=== PATIENT | female | born 1995 | race Caucasian/White ===

== ENCOUNTER → 2019-10-13 | Outpatient (CLI) | payer OTHER, SELFPAY ==
[2019-10-13 17:24] LABS: Absolute Lymphocyte Count 2.68 X10^3/uL (0.83-4.51); Absolute Neutrophil Count 5.2 X10^3/uL (2.0-7.7); Basophil# 0.02 X10^3/uL; Basophil% 0.2 % (0-1); Eosinophil# 0.09 X10^3/uL; Eosinophils% 1.1 % (0-5); Hematocrit 37.1 % (37-47); Hemoglobin 12.3 g/dL (12.0-15.0); Lymphocyte # 2.68 X10^3/ul (4.0); Lymphocyte % 31.5 % (19-41); Mean Corp Hgb Conc 33.2 g/dL (32-36); Mean Corpuscular Hgb 27.3 pg (27.0-32.0); Mean Corpuscular Volume 82.4 fL (81-99); Mean Platelet Vol. 8.7 fl (6.2-12.0); Monocyte# 0.51 X10^3/uL; NRBC Flagged by Analyzer 0 % (0-5); Neutrophil # 5.18 X10^3/uL (2.7-7.7); Neutrophil % 60.7 % (47-70); Platelet Count 264 K/mm3 (150-450); RBC Distribution Width CV 14.5 % (11.6-14.6); RBC Distribution Width SD 42.8 fl (35.1-43.9); White Blood Count 8.5 K/mm3 (4.4-11.0)
[2019-10-13 17:26] LABS: Color, Urine Yellow (Yellow); Glucose, Dipstick Normal (Normal); Ketone-Dipstick Negative (Negative); Leukocyte Esterase-Dipstick Negative /ul (Negative); Nitrite-Dipstick Negative (Negative); Occult Blood-Urine Negative /ul (Negative); Protein-Dipstick Negative (Negative); Specific Gravity, Urine 1.005 (1.002-1.030); Urine Bilirubin Dipstick Negative (Negative); Urine Clarity Sl. Cloudy (Clear); Urine Urobilinogen Normal (Normal)
[2019-10-13 17:43] LABS: Thyroid Stim Hormone (TSH) 4.36 uIU/mL (0.358-3.74)
[2019-10-14 08:55] LABS: HIV - WCH Non-Reactive (Nonreactive); Hepatitis B Surface Antigen Non-Reactive (Nonreactive); Hepatitis C Antibody Non-Reactive (Nonreactive); Rubella IgG 327.4 IU/mL
[2019-10-14 17:28] LABS: Free T3 2.7 pg/mL (2.18-3.98); T4 Free Direct 0.93 ng/dL (0.76-1.46)
[2019-10-16 01:56] LABS: Prenatal RPR NONREACTIVE (NONREACTIVE)
== END | disposition home or self-care (01) ==
PROVIDERS: Visit Provider Obstetrics & Gynecology
DX: Z34.82 Encounter for supervision of other normal pregnancy, second trimester (principal); R94.6 Abnormal results of thyroid function studies
CPT/HCPCS: 81002; 84439; 84443; 84481; 85025; 86703; 86762; 86803; 87340

== ENCOUNTER → 2019-10-13 | Outpatient (CLI) | payer OTHER, SELFPAY ==
[2019-10-13 20:20] LABS: Chlamydia Trachomatis by PCR Negative (Negative); Neisserai gonorrhoeae by PCR Negative (Negative); Probe Check PASS; Sample Adequacy Control PASS; Specimen Processing Control PASS
[2019-10-16 12:54] LABS: HPV Reflexed? NOT INDICATED
== END | disposition home or self-care (01) ==
PROVIDERS: Visit Provider Obstetrics & Gynecology
DX: Z12.4 Encounter for screening for malignant neoplasm of cervix (principal); Z11.3 Encounter for screening for infections with a predominantly sexual mode of transmission
CPT/HCPCS: 87491; 87591; 88175; G0145

== ENCOUNTER → 2020-03-10 10:33 | Outpatient (CLI) | payer OTHER, SELFPAY | PROVIDERS: Visit Provider Obstetrics & Gynecology | DX: Z11.59 Encounter for screening for other viral diseases (principal) | CPT/HCPCS: 87635; C9803; U0003 ==

== ENCOUNTER 2020-03-17 05:00 | Inpatient (IN) | payer SELFPAY, OTHER ==
--- NOTE | 2020-03-16 22:26 | HP.PCM_ITS ---
History and Physical Date of Admission: 03/17/20 ACOG ANTEPARTUM RECORD - HISTORY AND PHYSICAL (03/16/2020) Name: MELVIN NAOMIE History of This : This is a 25-year-old G3, P2 who presents for repeat section. care has been uneventful. OB Physician: LUNA 's Physician: ...................................................................... : 1995 Age: 25 Address: [address] [place] [address] Phone: (h) [phone] ([phone] Insurance Carrier: [facility] [id number] Emergency Contact: SHANITA Perkins MELVIN [phone] ...................................................................... 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 ALLERGIES: No Known Allergies MEDICATIONS: Calcium 500 500 mg calcium (1,250 mg) tablet One pill by mouth four times a day magnesium 200 mg tablet One pill by mouth once a day [place] 3-6-9 Complex 400 mg-400 mg-400 mg capsule Two pills by mouth twice a day 28 mg iron-800 mcg tablet One pill by mouth once a day vitamin B complex tablet 1 PO QD SOCIAL HISTORY: Smoking - Never Alcohol Use - None Diet - no particular diet Lifestyle - moderate stress lifestyle and Exercise - active work Employer - [employer] 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 Drug Use - None Sexual Activity - Spouse-Sig Other Name - Shanita Spouse-Sig Other 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 - [employer]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) Children Name(s) - Dillan(15) Simón(19 ) PRIOR DELIVERY HISTORY DEL DATE GEST LAB WT LB WT OZ TYPE ANES LABOR TX ANTEPARTUM FLOW CHART VISIT RTC FU F F SC U U DATE WK MD WKS HT PN HR M SS BP ED WT SC GL D EF ST __ ____ ___ __ __ ___ __ __ __ ___ __ __ __ ___ __ Mar JMW 3 38 + + 118/84 sl 188 tr - Feb JMW 1 37 + + 122/64 sl 189 1+ - 18 Feb JMW 1 37 + + 118/68 0 188 - - Jan JMW 3 33 + + 108/62 sl 185 tr - Feb 04 JMW 3 30 B + + 116/64 sl 178 - - Jan 02 JMW 3 27 + + 107/68 0 176 - - November 28 JMW 4 24 + + 100/62 tr 169 tr - Oct 25 JMW 4 20 + + 132/76 0 164 - - ANTEPARTUM NOTE(S): Mar 09 2020: See Note, Good FM Mar 02 2020: Moving Sunday; some low pressure; good FM Feb 24 2020: Doing Well, LARC declined, No GBS, R/ Feb 03 2020: Doing Well Jan 13 2020: Feeling Well,Good FM Dec 23 2019: CBC,OGCT,TSH,Free T4 & Free T3 Drawn today,Good FM Nov 25 2019: Glucola/Instructions Given,Good FM,Feeling Well Nov 03 2019: Sono Today,Good FM COMPREHENSIVE ANTEPARTUM NOTE(S): Mar 09 2020: [place] presents here today for PNV and to sign pre-op consents for Repeat with KLAUDIA at [facility]. Questions answered and consents signed. Good FM and Order for Covid-19 and instructions given. ADRIANE Oct 13 2019: [place] presents here today for Missed Menses appointment. 24 y.o. G 3 P 1 non-smoker with history of regular menses and LMP of 12-10-19 lasting her average of 5 days. UPT is positive today in our Office. Presents at 16 weeks 4 days with an approximate SANIYA of 0915-20 and plans to deliver at [facility]. Last C- Section in 2019 at [facility] with Dr. Quinonez( with baby Simón at 6 months after ). Medications and Allergies listed. Verbal report of normal pap screenings and unsure of last date. ADRIANE Oct 13 2019: ok REVIEW OF SYSTEMS: GENERAL - Denies fever, or chills SKIN - Denies rash, new skin lesions, or change in moles EYES - Denies blurred vision, or change in visual acuity EARS - Denies ear pain, or difficulty hearing NOSE - Denies nasal congestion, discharge, or bleeding MOUTH - Denies sore throat, or difficulty swallowing NECK - Denies pain or swelling RESPIRATORY - Denies shortness of breath, cough, wheezing CARDIOVASCULAR - Denies palpitations, chest pain, orthopnea, PND, peripheral edema, syncope or claudication GASTROINTESTINAL - Denies nausea, vomiting, diarrhea, constipation, Denies abdominal pain, melena and or bright red blood GENITOURINARY - Denies dysuria, frequency of urination, urgency, or hesitancy MUSCULOSKELETAL - Denies joint or muscle pain, or back pain NEUROLOGICAL - Denies localized numbness, weakness, or tingling PSYCHIATRIC - Denies depression, anxiety, substance abuse or suicide attempts ENDOCRINE - Denies heat or cold intolerance, weight loss or gain, increasing thirst HEMATO-IMMUNOLOGIC - Denies easy bruising, bleeding, oral ulcerations or recurrent infections GENETICS SCREENING: INFECTION HISTORY: MENSTRUAL HISTORY: *Menses Amount/Duration: 5 daysMenses Regularity: RegularFrequency: monthlyMenarche (Age Onset): 9* PAST SUMMARY: PARITY: 1. Total Pregnancies............ 3 2. Full Term Pregnancies........ 2 3. Premature.................... 0 4. Abortions - Induced.......... 0 5. Abortions - Spontaneous...... 0 6. Ectopics..................... 0 7. Multiple Births.............. 0 8. Living Children.............. 1 PHYSICAL EXAMINATION General Appearence: 25 yo female in no acute distress Vital Signs: AF, VSS Heart: RRR without rubs or gallops Lungs: CTA x 2 Breasts: deferred Abdomen: gravid Pelvis: Cervix: Not examined Presentation: cephalic Station: Not examined Fetus: Size: AGA Movement: present Heart: present Labs for : NAOMIE CHARLES since 06/27/2019 ORDER DATEIN DESCRIPTION VALUE UNITS RANGE A+ COMMENT CORONAVIRUS 19, BELKIS SENDOUT 03/10/20 NOTE Original Ordering Provider: Eryn Vasquez COVID-19,BELKIS Not Detected Not Detected This nucleic acid amplification test was developed and its performance characteristics determined by [facility]. Nucleic acid amplification tests include PCR and TMA. This test has not been FDA cleared or approved. This test has been authorized by FDA under an Emergency Use Authorization (EUA). This test is only authorized for the duration of time the declaration that circumstances exist justifying the authorization of the emergency use of in vitro diagnostic tests for detection of SARS-CoV-2 virus and/or diagnosis of COVID-19 infection under section 564(b)(1) of the Act, 21 U.S.C. 360bbb-3(b) (1), unless the authorization is terminated or revoked sooner. When diagnostic testing is negative, the possibility of a false negative result should be considered in the context of a patient's recent exposures and the presence of clinical signs and symptoms consistent with COVID-19. An individual without symptoms of COVID-19 and who is not shedding SARS-CoV-2 virus would expect to have a negative (not detected) result in this assay. Reviewed by ERYN T3 ( TRIIODOTHYRONINE) [CCL] 12/23/19 NOTE Original Ordering Provider: ERYN VASQUEZ T3 246 ng/dL [address] [place] [address] Tex Bellamy III, M.D. [id number] Reviewed by ERYN TSH 12/23/19 NOTE Original Ordering Provider: ERYN VASQUEZ w TSH 3.80 uIU/ml 0.34 - 5.60 Reviewed by ERYN T4 (THYROXINE) TOTAL 12/23/19w NOTE Original Ordering Provider: ERYN VASQUEZ T4 (THYROXINE) TOTAL THYROXINE(T4) T4 11.0 ug/dl 6.0 - 12.2 Reviewed by ERYN GLUCOSE CHALLENGE 50GM 1 HOUR 12/23/19 NOTE Original Ordering Provider: ERYN VASQUEZ GLUCOSE CHALLENGE 50GM 1 HOUR GLUCOSE CHALLENGE 50 GMS 1 HOUR GLUCOSE 1HR 113 mg/dl 70 - 140 Reviewed by ERYN CBC + DIFF 12/23/19 NOTE Original Ordering Provider: ERYN VASQUEZ CBC + DIFF CBC-COMPLETE BLOOD COUNT WBC 9.3 x 10EE3/UL 4.5 - 10.8 RBC 3.83 x 10EE6/UL 4.10 - 5.30 L HEMOGLOBIN 11.1 g/dl 12.0 - 16.0 L HEMATOCRIT 32.1 % 34.0 - 46.0 L MCV 84 fl 80 - 99 MCH 29 pg 27 - 33 MCHC 35 X10 3 32 - 36 RDW/CV 14.2 % 12.0 - 15.6 PLATELET 313 x10EE3/UL 150 - 450 MPV 6.6 fl 6.6 - 10.5 AUTOMATED DIFFERENTIAL NEUT % 70.2 % 46.0 - 76.0 LYMPH % 23.7 % 20.0 - 45.0 MONOS % 4.7 % 0.0 - 10.0 EO % 1.0 % 0.0 - 7.0 BASO % 0.4 % 0.0 - 2.0 LYMPH # 2.20 x10EE3/UL 0.80 - 2.80 NEUT # 6.50 x10EE3/UL 1.50 - 7.10 MONO # 0.40 x10EE3/UL 0.20 - 1.00 EO # 0.10 x10EE3/UL 0.00 - 0.50 BASO # 0.00 x10EE3/UL 0.00 - 0.10 MANUAL DIFF N/A MORPHOLOGY N/A Reviewed by ERYN T3, FREE [CCL] 12/23/19 NOTE Original Ordering Provider: ERYN VASQUEZ T3, FREE [CCL] _T3, FREE(CCL)_ REFER TO SCANNED REPORT Reviewed by ERYN T4-FREE (FREE THYROXINE) 12/23/19 NOTE Original Ordering Provider: ERYN VASQUEZ T4-FREE (FREE THYROXINE) REFER TO SCANNED REPORT Potential of falsely elevated results when biotin concentrations are > 10 ng/mL. Reviewed by ERYN Panel-Thyroid 12/22/19 T-3 Uptake scanned Reviewed by ERYN STRATTON IG W/REFLEX HR HPV APTIMA 10/13/19 NOTE Original Ordering Provider: Eryn Vasquez DIAGN . NEGATIVE FOR INTRAEPITHELIAL LESION OR MALIGNANCY. THIS SPECIMEN WAS RESCREENED PART OF OUR VIDEOGAME TESTER PROGRAM. ADEQ . Satisfactory for evaluation. Endocervical and/or squamous metaplastic cells (endocervical component) are present. Areas of partially obscuring inflammatory exudate are present. PERFORM . [place], Cmo & President (ASCP) QC REV . Radha Edwards, Supervisory Cmo & President (ASCP) TEST METHOD . This liquid based ThinPrep(R) pap test was screened with the use of an image guided system. COMM . . PAPSMR . The Pap smear is a screening test designed to aid in the detection of premalignant and malignant conditions of the uterine cervix. It is not a diagnostic procedure and should not be used as the sole means of detecting cervical cancer. Both false-positive and false-negative reports do occur. HPV RFLX . The HPV DNA reflex criteria were not met with this specimen result therefore, no HPV testing was performed. Performed at: [address] [id number] Economics Lecturer: Lizzeth Lilly MD, Phone: [phone] Reviewed by ERYN JIMENEZ/RICK [facility] BY PCR 10/13/19 NOTE Original Ordering Provider: Eryn [facility] PCR Negative Negative NG BY PCR Negative Negative Reviewed by AMOS RPR 10/13/19 NOTE Original Ordering Provider: Eryn Vasquez RPR NONREACTIVE NONREACTIVE Reviewed by ERYN T4 FREE DIRECT 10/13/19 NOTE Original Ordering Provider: Eryn Vasquez T4 FREE DIRECT 0.93 ng/dL 0.76-1.46 Reviewed by AMOS THYROID STIM HORMONE (TSH) 10/13/19 NOTE Original Ordering Provider: Eryn Vasquez TSH 4.36 uIU/mL 0.358-3.74 H Reviewed by AMOS FREE T3 10/13/19 NOTE Original Ordering Provider: Eryn Vasquez FREE T3 2.7 pg/mL 2.18-3.98 Reviewed by AMOS HEPATITIS C ANTIBODY 10/13/19 NOTE Original Ordering Provider: Eryn Vasquez HEPATITIS C AB Non-Reactive Nonreactive Non Reactive: < 0.8 Equivocal: >/= 0.8 to < 1.0 Reactive: >/= 1.0 The CDC recommends that a reactive/equivocal HCV antibody result be followed up by the HCV Nucleic Acid Amplification test (327591) w Reviewed by AMOS HEPATITIS B SURFACE ANTIGEN 10/13/19 NOTE Original Ordering Provider: Eryn Vasquez HEPB SURFACE AG Non-Reactive Nonreactive Reviewed by AMOS HIV - H 10/13/19 NOTE Original Ordering Provider: Eryn Vasquez HIV - [facility] Non-Reactive Nonreactive Reviewed by AMOS RUBELLA IGG 10/13/19 NOTE Original Ordering Provider: Eryn Vasquez RUBELLA IGG 327.4 IU/mL Antibody results Interpretation of Immune Status < 5 IU/ml Presumed Non-immune 5 - < 10 IU/ml Equivocal > or = 10 IU/ml Presumed Immune Reviewed by AMOS T AND S-NO CHARGE W/PNP 10/13/19 Reason for Type AND Screen/Red Cells: Surgery? [facility]~[address] [place], [address]~ BLOOD TYPE GEL O POSITIVE N AB SCREEN GEL NEGATIVE N c Reviewed by AMOS Reviewed by AMOS URINALYSIS, ROUTINE (DIPSTICK) 10/13/19 NOTE Original Ordering Provider: Eryn Vasquez COLOR Yellow Yellow CLARITY Sl. Cloudy Clear GLUCOSE, UR Normal mg/dl Normal BILIRUBIN URINE Negative mg/dL Negative KETONE UR Negative mg/dl Negative SP.GR. DIPSTX 1.005 1.002-1.030 PH UR 7.0 5.0 - 8.0 PROT DIPSTX Negative mg/dl Negative UROBILI Normal mg/dl Normal NITRITE UR Negativew Negative OCCULT BLOOD-UR Negative /ul Negative LEUK ESTERASE Negative /ul Negative Reviewed by AMOS CBC W/DIFF, AUTOMATED 10/13/19 NOTE Original Ordering Provider: Eryn Vasquez WBC 8.5 K/mm3 4.4-11.0 RBC 4.50 M/mm3 4.2-5.4 HGB 12.3 g/dL 12.0-15.0 HCT 37.1 % 37-47 MCV 82.4 fL 81-99 MCH 27.3 pg 27.0-32.0 MCHC 33.2 g/dL 32-36 RDW CV 14.5 % 11.6-14.6 RDW SD 42.8 fl 35.1-43.9 PLT 264 K/mm3 150-450 MPV 8.7 fl 6.2-12.0 NEUT% 60.7 % 47-70 LY% 31.5 % 19-41 MONO% 6.0 % 0-10 EO% 1.1 % 0-5 BASO% 0.2 % 0-1 IM GRAN % 0.500 % 0.0-0.9 IG% - Immature Granulocytes (promyelocytes, myelocytes and metamyelocytes) > 1% indicates that a LEFT SHIFT is Present. ABSOLUTE NEUT 5.2 X10 3/uL 2.0-7.7 ABSOLUTE LYMPH 2.68 X10 3/uL 0.83-4.51 NRBC, FLAGGED 0 % 0-5 Reviewed by AMOS Impression /Plan: 39-week intrauterine for repeat section. Preparations in progress for delivery.
[2020-03-17] VITALS (17 sets, daily range): BP systolic 107–134; BP diastolic 58–77; PULSE 76–107; RESP 16–20; TEMP 36.1–36.7; O2SAT 97–100; BMI 35.9
[2020-03-17] MEDS: Lactated Ringers 1,000 ML 999 ML IV (05:30)
[2020-03-17] MEDS: Acetaminophen 500 MG Tablet 1000 MG PO ×4 (05:40→23:37)
[2020-03-17 05:49] LABS: Absolute Lymphocyte Count 2.32 X10^3/uL (0.83-4.51); Absolute Neutrophil Count 5.2 X10^3/uL (2.0-7.7); Basophil# 0.02 X10^3/uL; Basophil% 0.3 % (0-1); Eosinophil# 0.08 X10^3/uL; Hematocrit 32.6 % (37-47); Hemoglobin 10.7 g/dL (12.0-15.0); Lymphocyte # 2.32 X10^3/ul (4.0); Mean Corp Hgb Conc 32.8 g/dL (32-36); Mean Corpuscular Hgb 27.8 pg (27.0-32.0); Mean Corpuscular Volume 84.7 fL (81-99); Mean Platelet Vol. 8.8 fl (6.2-12.0); Monocyte# 0.34 X10^3/uL; Monocyte% 4.3 % (0-10); NRBC Flagged by Analyzer 0 % (0-5); Neutrophil # 5.21 X10^3/uL (2.7-7.7); Platelet Count 262 K/mm3 (150-450); RBC Distribution Width CV 13.7 % (11.6-14.6); RBC Distribution Width SD 42.1 fl (35.1-43.9); Red Blood Count 3.85 M/mm3 (4.2-5.4)
[2020-03-17] MEDS: Lactated Ringers 1,000 ML 150 ML IV (06:31)
[2020-03-17] MEDS: Sodium Citrate/Citric Acid 30 ML UDC PO (07:02)
[2020-03-17] MEDS: Cefazolin 2 GM in 0.9% Normal Saline 100 ML IV (07:26)
--- NOTE | 2020-03-17 07:35 | PCM.OPRPT ---
Delivery Classification: Scheduled Final SANIYA: 03/23/20 Final SANIYA Source: US <20 weeks Gestational age: 39 Weeks and 1 Days consulting property manager: Miguel Harris Type of Anesthesia:: Spinal - With Duramorph Date of Procedure: 03/17/20 Pre-Operative Diagnosis: Previous Section Post-Operative Diagnosis: Previous Section Description of Procedure: Surgeon: Pk Pacheco MD, FACOG Anesthesia: Yvan Colon MD Procedure: Repeat Low Transverse Cervical Caesarean Section Findings: Viable male with Apgars of 9/10 in occiput anterior presentation with clear amniotic fluid and normal three-vessel placenta. Indication: This is a 25-year-old who presents for her second at 39+ weeks gestation. care has otherwise been uneventful. The patient has been counseled regarding the risk and indications of this procedure including the possibility of bleeding infection and injury to surrounding structures such as bowel bladder. All questions were answered. Procedure: Patient was taken to the operating room where after spinal anesthesia was placed, the patient was prepped and draped in usual sterile fashion and a Birscoe catheter was placed. The abdomen was entered through the patient's prior Pfannenstiel incision and peritoneum was entered bluntly. After developing a bladder flap on the lower uterine segment a low transverse incision was made on the uterus and head was easily delivered onto the operative field the nose mouth and oropharynx were bulb suctioned. Subsequently a viable male infant was born with Apgars of 9/10. The infant was noted to cry move all extremities vigorously on the operative field. The umbilical cord was doubly clamped and ligated and handed to the nursery personnel who were present for the delivery. Placenta was delivered and noted to be 3 vessels and normal. Uterus was exteriorized and remaining placental tissue was removed. The uterus was then closed in 2 layers first with running locked 0 Vicryl suture followed by a second imbricating layer with 0 Vicryl suture. 0 Vicryl suture was then used in a horizontal mattress interrupted fashion to affect final hemostasis of the uterine incision line. Normal fallopian tubes and ovaries were visualized and the uterus was returned to the pelvis. Hemostasis was noted and rectus abdominis muscles were reapproximated in the midline with interrupted Number 0 Vicryl suture in a horizontal mattress fashion. Fascia was closed with running Number 1 PDS Strata fix suture. Subcutaneous tissue was irrigated with copious amounts of saline solution and then closed with running 3-0 Vicryl suture. Skin was closed with 4-0 monocryl suture in a running subcuticular fashion. Steri strips and a Mepilex dressing were placed across the incision. The patient tolerated the procedure well and was taken to the recovery room in satisfactory condition. Sponge, needle, and instrument counts were all reportedly correct. EBL was less than 500 cc. Ancef 2 gms IV was given prior to the procedure. Spicemen to Pathology: None Complications: None Amniotic Fluid Description: Clear Placenta Disposition: [facility] Specimen(s) sent to pathology: None Drain: Briscoe to straight drain Fluids Replaced: Crystalloid Cord Entanglement: Around neck x 1, tight Cord Vessel Description: 3 Vessels Esitmated Blood Loss (ml): 500 cc Gender: Male (1 minute): 9 (5 minute): 10 Antibiotic Given: Ancef 2 grams IV x1 Pt instructed on risks of surgery: Bleeding, Infection, Injury to surrounding structure(s) including bowel and bladder Complications: None - Admit VTE Documentation VTE Present on Admission: Yes VTE Mechan Device Prophylaxis: SCD's VTE Pharm Prophylaxis ordered?: Yes
--- NOTE | 2020-03-17 07:39 | DCINST_ITS ---
<Pk Pacheco - Last Filed: 03/17/20 07:39> Discharge Diet: No Restrictions Discharge Activity: May not drive while taking narcotic pain medications., May Shower, May Take a Tub Bath May resume sexual activity in: 4-6 weeks Lifting Restrictions: 20 pounds Additional Activity Instructions:: Nothing in the vagina for 4-6 weeks. You may return to work/school in 6 weeks. Call your doctor if your incision/area has: Continuous Slow Oozing, Sudden Increased Bleeding, Increased Pain/ Swelling, Increased Redness, Foul Smelling Discharge Call your doctor if you observe: Fever of 101 or Higher, Inability to urinate, Inability to have a bowel movement Additional Instructions: If you experience any of the following, contact your healthcare provider. * Bleeding that soaks a pad every hour for 2 hours * Fever 100.4 or higher * Unrelieved incision or abdominal pain * Swelling, redness, discharge or bleeding from your incision or episiotomy site * Your incision begins to separate * Problems urinating (including inability to urinate or burning while urinating). * Visual changes * Severe headache * Flu-like symptoms * Pain or redness in one of both of your breasts * Pain, warmth, tenderness or swelling in your legs, especially the calf area * Frequent nausea and vomiting * Symptoms of depression or anxiety If you experience any of the following, call 911 or go to the nearest Emergency Room. * Chest pain * Problems breathing * Seizure activity * Partial or complete paralysis of a body part, slurred speech, weakness or drooping of the face, or a sudden inability to walk or hold your balance Allergies/Adverse Reactions: Allergies No Known Allergies Allergy (Verified 03/17/20 05:16) Medications to take at Discharge Docusate Sodium [Colace] 100 mg PO BID PRN PRN #60 cap 03/17/20 Oxycodone [Oxyir] 5 mg PO Q6H PRN PRN 7 Days #20 tab 03/17/20 Vits [Prenatabs FA] 1 tab PO DAILY 03/17/20 The following prescriptions were given: Docusate Sodium [Colace] 100 mg PO BID PRN PRN #60 cap PRN Reason: Constipation Transmission Status: Received by [facility] Oxycodone [Oxyir] 5 mg PO Q6H PRN PRN 7 Days #20 tab PRN Reason: Pain Score 6-10/10 Transmission Status: Received by [facility] Follow-Up: Call to make an appointment with your doctor for an incision check in 1-2 weeks. You will also need a 6 week post- follow up appointment. Test results from this visit will be discussed in further detail at your follow- up appointment, if applicable. Please Follow Up With: Pk Pacheco MD - [phone] When: Call to make an appointment for an incision check in 2 weeks. Primary Care Physician: Mele Joe MD [Primary Care Provider] - <Trip Joe - Last Filed: 03/19/20 07:29> Additional Instructions: If you experience any of the following, contact your healthcare provider. * Bleeding that soaks a pad every hour for 2 hours * Fever 100.4 or higher * Unrelieved incision or abdominal pain * Swelling, redness, discharge or bleeding from your incision or episiotomy site * Your incision begins to separate * Problems urinating (including inability to urinate or burning while urinating). * Visual changes * Severe headache * Flu-like symptoms * Pain or redness in one of both of your breasts * Pain, warmth, tenderness or swelling in your legs, especially the calf area * Frequent nausea and vomiting * Symptoms of depression or anxiety If you experience any of the following, call 911 or go to the nearest Emergency Room. * Chest pain * Problems breathing * Seizure activity * Partial or complete paralysis of a body part, slurred speech, weakness or drooping of the face, or a sudden inability to walk or hold your balance Follow-Up: Call to make an appointment with your doctor for an incision check in 1-2 weeks. You will also need a 6 week post- follow up appointment. Test results from this visit will be discussed in further detail at your follow- up appointment, if applicable.
[2020-03-17] MEDS: Oxytocin 30 units/NS 500 ml 30 UNITS/500 ML IV.SOLN 167 UNITS IV (08:50)
--- NOTE | 2020-03-17 11:34 | NURSING ---
Agree with 1128 assessment by Darío, student nurse
[2020-03-17] MEDS: Senna/Docusate Sodium 1 Tablet PO (11:49)
[2020-03-17] MEDS: Lactated Ringers 1,000 ML 100 ML IV ×2 (11:57→22:02)
--- NOTE | 2020-03-17 12:10 | CPS ---
started by nursing
[2020-03-17] MEDS: Ketorolac 30 MG/ML Syringe IV ×2 (14:49→20:38)
[2020-03-17] MEDS: Cefazolin 1 GM/50 ML BAG IV ×2 (15:38→23:09)
--- NOTE | 2020-03-17 16:14 | NURSING ---
reviewed student charting that is used for learning and educational purposes.
[2020-03-17] MEDS: Enoxaparin 40 MG/0.4 ML Syringe SC (18:51)
[2020-03-17] MEDS: 0.9% Saline Lock 10 ML Syringe IV (20:39)
[2020-03-18] MEDS: 0.9% Saline Lock 10 ML Syringe IV ×3 (00:03→08:22)
[2020-03-18] MEDS: Ketorolac 30 MG/ML Syringe IV ×2 (02:24→08:21)
[2020-03-18 03:36] VITALS: BP 128/71; PULSE 92; RESP 16; TEMP 36.6
[2020-03-18 05:48] LABS: Hematocrit 30.9 % (37-47); Hemoglobin 10.1 g/dL (12.0-15.0); Mean Corp Hgb Conc 32.7 g/dL (32-36); Mean Corpuscular Hgb 27.6 pg (27.0-32.0); Mean Corpuscular Volume 84.4 fL (81-99); Mean Platelet Vol. 8.5 fl (6.2-12.0); Platelet Count 223 K/mm3 (150-450); RBC Distribution Width CV 13.8 % (11.6-14.6); RBC Distribution Width SD 42.9 fl (35.1-43.9); Red Blood Count 3.66 M/mm3 (4.2-5.4); White Blood Count 8.9 K/mm3 (4.4-11.0)
[2020-03-18] MEDS: Acetaminophen 500 MG Tablet 1000 MG PO ×3 (06:14→18:05)
--- NOTE | 2020-03-18 07:09 | PN.OBGYN_ITS ---
Subjective: Postoperative Objective: No overnight complaints. Pain well controlled. Denies CP, SOB, N/V - Physical Exam Vitals/I&O's: Vital Signs Temp Pulse Resp BP Pulse Ox 97.9 F 92 16 128/71 H 97 03/18/20 03:36 03/18/20 03:36 03/18/20 03:36 03/18/20 03:36 03/17/20 20:21 Oxygen Delivery Method Room Air Weight: 190 lb Body Mass Index (BMI) 35.9 Intake and Output for Last 24 Hours 03/16/20 03/17/20 03/18/20 23:59 23:59 23:59 Intake Total 3830 / 3830 650 / 650 Output Total 500 / 500 600 / 600 Balance 3330 / 3330 50 / 50 General: Alert, Oriented x3, Cooperative, No apparent distress HEENT: Atraumatic, Normocephalic Oral: Moist Mucosa Neck: Supple Abdomen: Soft, Non Tender, Gravid - fundus firm and at umbilcus, - - Incision clean dry and intact Psych/Mental Status: Normal Affect, Appropriate, Alert and oriented to time, place, person, mood and affect Laboratory Results 03/18/20 05:36: WBC 8.9, RBC 3.66 L, Hgb 10.1 L, Hct 30.9 L, MCV 84.4, MCH 27.6, MCHC 32.7, RDW Std Deviation 42.9, RDW Coeff of Danie 13.8, Plt Count 223, MPV 8.5 Current Medications Acetaminophen (Tylenol) 1,000 mg PO Q6H [facility] Last Admin: 03/18/20 06:14 Dose: 1,000 mg Documented by: Bisacodyl (Dulcolax) 10 mg RECTAL UD PRN PRN Reason: If no BM Diphenhydramine HCl (Benadryl) 25 mg PO Q6H PRN PRN PRN Reason: ITCHING Stop: 03/18/20 08:58 Enoxaparin Sodium (Lovenox) 40 mg SC DAILY@1800 [facility] Last Admin: 03/17/20 18:51 Dose: 40 mg Documented by: Hydrocortisone (Hytone) 1 applic TOPICAL TID PRN PRN; Protocol PRN Reason: Discomfort Naloxone HCl 4 mg/ Dextrose 504 mls @ 0 mls/hr IV .Q0M PRN; Protocol PRN Reason: To maintain Resp. rate >10 Ibuprofen (Motrin) 600 mg PO Q6 FALGUNI Ketorolac Tromethamine (Toradol (Bkc)) 30 mg IV Q6H [facility] Stop: 03/18/20 08:31 Last Admin: 03/18/20 02:24 Dose: 30 mg Documented by: Methylergonovine Maleate (Methergine) 0.2 mg IM X1 PRN PRN Reason: Uterine Atony Naloxone HCl (Narcan) 0.02 mg IV Q1M PRN PRN Reason: RR <10 and pt unresponsive Ondansetron HCl (Zofran) 4 mg IV Q4H PRN PRN PRN Reason: Nausea Oxycodone HCl (Oxyir) 5 - 10 mg PO Q4H PRN PRN PRN Reason: Pain Score 4-10/10 Prochlorperazine Edisylate (Compazine Iv) 10 mg IV Q6H PRN PRN PRN Reason: NAUSEA Senna/Docusate Sodium (Senokot-S, Teodora-Colace) 1 - 2 tablet PO DAILY [facility] Last Admin: 03/17/20 11:49 Dose: 2 tablet Documented by: Simethicone (Mylicon) 80 mg PO PCHS PRN PRN Reason: Indigestion/stomach pain Sodium Chloride () 5 - 15 ml IV UD PRN PRN Reason: SALINE FLUSH Last Admin: 03/18/20 02:24 Dose: 10 ml Documented by: Medical Necessity - Tobacco Use Smoking Status: Never smoker Assessment/Plan POD#1, pain well controlled. Breast feeding. Likely d/c home tomorrow
[2020-03-18 08:30] VITALS: BP 102/69; PULSE 88; RESP 20; TEMP 36.4
[2020-03-18] MEDS: Ibuprofen 600 MG Tablet PO ×2 (12:05→18:04)
[2020-03-18 14:45] VITALS: BP 107/72; PULSE 98; RESP 16; TEMP 36
[2020-03-18] MEDS: Enoxaparin 40 MG/0.4 ML Syringe SC (18:05)
[2020-03-18 19:35] VITALS: BP 116/74; PULSE 89; RESP 16; TEMP 36.1; O2SAT 97
[2020-03-18] MEDS: oxyCODONE 5 MG Tablet PO (20:10)
[2020-03-19] MEDS: Acetaminophen 500 MG Tablet 1000 MG PO ×3 (00:06→12:09)
[2020-03-19] MEDS: Ibuprofen 600 MG Tablet PO ×3 (00:07→12:07)
[2020-03-19 02:35] VITALS: BP 116/71; PULSE 87; RESP 16; TEMP 36.2; O2SAT 97
--- NOTE | 2020-03-19 07:25 | PN.OBGYN_ITS ---
Subjective: Postoperative Objective: No overnight complaints. Pain well controlled. Denies CP, SOB, N/v - Physical Exam Vitals/I&O's: Vital Signs Temp Pulse Resp BP Pulse Ox 97.2 F L 87 16 116/71 97 03/19/20 02:35 03/19/20 02:35 03/19/20 02:35 03/19/20 02:35 03/19/20 02:35 Oxygen Delivery Method Room Air Weight: 190 lb Body Mass Index (BMI) 35.9 Intake and Output for Last 24 Hours 03/17/20 03/18/20 03/19/20 23:59 23:59 23:59 Intake Total 3830 / 3830 650 / 650 Output Total 500 / 500 600 / 600 Balance 3330 / 3330 50 / 50 General: Alert, Oriented x3, Cooperative, No apparent distress HEENT: Atraumatic, Normocephalic Oral: Moist Mucosa Neck: Supple Abdomen: Soft, Non Tender, Gravid - Fundus firm at umbilicus, - - incision c/d/i Psych/Mental Status: Normal Affect, Appropriate, Alert and oriented to time, place, person, mood and affect Current Medications Acetaminophen (Tylenol) 1,000 mg PO Q6H [facility] Last Admin: 03/19/20 06:15 Dose: 1,000 mg Documented by: Bisacodyl (Dulcolax) 10 mg RECTAL UD PRN PRN Reason: If no BM Enoxaparin Sodium (Lovenox) 40 mg SC DAILY@1800 FALGUNI Last Admin: 03/18/20 18:05 Dose: 40 mg Documented by: Hydrocortisone (Hytone) 1 applic TOPICAL TID PRN PRN; Protocol PRN Reason: Discomfort Naloxone HCl 4 mg/ Dextrose 504 mls @ 0 mls/hr IV .Q0M PRN; Protocol PRN Reason: To maintain Resp. rate >10 Ibuprofen (Motrin) 600 mg PO Q6 [facility]ALGUNI Last Admin: 03/19/20 06:09 Dose: 600 mg Documented by: Methylergonovine Maleate (Methergine) 0.2 mg IM X1 PRN PRN Reason: Uterine Atony Naloxone HCl (Narcan) 0.02 mg IV Q1M PRN PRN Reason: RR <10 and pt unresponsive Ondansetron HCl (Zofran) 4 mg IV Q4H PRN PRN PRN Reason: Nausea Oxycodone HCl (Oxyir) 5 - 10 mg PO Q4H PRN PRN PRN Reason: Pain Score 4-10/10 Last Admin: 03/18/20 20:10 Dose: 5 mg Documented by: Prochlorperazine Edisylate (Compazine Iv) 10 mg IV Q6H PRN PRN PRN Reason: NAUSEA Senna/Docusate Sodium (Senokot-S, Teodora-Colace) 1 - 2 tablet PO DAILY FALGUNI Last Admin: 03/18/20 12:10 Dose: Not Given Documented by: Simethicone (Mylicon) 80 mg PO PCHS PRN PRN Reason: Indigestion/stomach pain Sodium Chloride () 5 - 15 ml IV UD PRN PRN Reason: SALINE FLUSH Last Admin: 03/18/20 08:22 Dose: 10 ml Documented by: Medical Necessity - Tobacco Use Smoking Status: Never smoker Assessment/Plan POD#2, pain well controlled on oxycodone. . Okay to d/c home today
[2020-03-19 07:53] VITALS: BP 122/73; PULSE 94; RESP 18; TEMP 36.3; O2SAT 98
[2020-03-19 07:55] VITALS: BP 122/73; PULSE 94; RESP 18; TEMP 36.3; O2SAT 98
[2020-03-19 09:11] VITALS: RESP 18; O2SAT 98
--- NOTE | 2020-03-19 09:42 | ED.RN ---
jayme offered, patient declined and stated she had 4 bowel movements. RN isauro MUELLER
--- NOTE | 2020-03-19 10:35 | NURSING ---
reviewed student's documention for completeness
--- NOTE | 2020-03-19 10:39 | NURSING ---
At am assessment, uterus noted to be 2 above and to left of midline. Pt instructed to void and will recheck
[2020-03-19] MEDS: oxyCODONE 5 MG Tablet PO (11:12)
[2020-03-19 11:27] VITALS: BP 115/70; PULSE 82; RESP 18; TEMP 36.3; O2SAT 98
--- NOTE | 2020-03-19 12:35 | CASEMGMT ---
Social Work Assessment Labor and Delivery Unit Patient Address: [address] [place] [address] Phone number: [phone] Date of Referral: 03.18.2020 Time of Referral: 547 Referred By: Dr. Pacheco Date of Intervention: 03.19.2020 Time of Intervention: 1119 Reason for Referral: history of loss when child was 6 months old (loss in November 2019) History obtained from: medical records and mother of baby (MOB) Jaimee Blanco Household composition: MOB, father of baby (FOB) Jason Blanco and their oldest child Dillan Blanco. No safety concerns in the home. Patient's parent/guardian status: MOB is age 27, to FOB for the last 6 years. MOB and FOB are of the [facility] community. No reports or indication of abuse or safety issues in relationship with FOB. MOB and FOB share 3 children, with 2 living and 1 . Children include: Dillan (born 2014), Manav (born 2018, in 11/2019), and baby Bubba Blanco (born 03.17.2022). Medical History: MOB is G3, P2 to 3 after delivery of Bubba. care started in the 2nd trimester at 16 weeks but regular and adequate thereafter. MEGAN's second child at 6 month of life related to complications for [employer]. Baby Bubba delivered at 39 weeks, 8 pounds, and Apgars 9 and 10 at 1 and 5 minutes of life. Educational Status: 8th grade, as is the norm in the [facility] community. No reported issues with reading, writing, or learning comprehension. Financial Status: FOB is employed at [employer]. Supplies: MOB reports to have needed baby supplies for including a safe sleep space of a pack-n-play with bassinet attachment and the route driver salesperson is bringing a car seat. MOB is breast feeding infant. Childcare/Caregiver(s): MOB and then help from FOB when home. Transportation: Hired route driver salesperson or horse and buggy. Programs/Agencies Involved: None. Children Services/Legal Issues: None reported. Behavioral Health Issues: Mental Health History: No diagnosis of depression but has had fluctuating emotions during this , describing more worry and anxiety. As far as goes, MOB reports she felt she did better with mood after Dillan. After Manav's , he required an 8 week NICU stay so this was hard, but also provided much distraction to MOB because she was so busy keeping up with Simón's care needs. No history of counseling or medication. Substance Use History: None reported or indicated. Family History: Not discussed. Drug Screens: None performed. Family/Social Stressors: 2 months NICU stay within the last year, after Manav was born. of Manav at the age of 6 months. Built a house this summer, after Manav . Reports the building of the house was a positive stress in that it kept MOB occupied and distracted. Support Systems: MOB reports to have a cousin who is like a sister and talk about everything. Additional support from FOB, FOB's mother who is over a lot, and then will have a fulltime helper for 6 weeks . The helper is FOAlexandre niece and is reported to also be a good listener. ASSESSMENT: Met with MOB in room, who was holding the baby during social work visit. MOB was appropriate and gentle with baby. MOB admits to some anxiety during , worrying about the health of Bubba and if he would be okay, and then with delivery wanting to make sure would go okay. MOB reports to be feeling more relaxed now that baby is here, healthy, and that breast feeding is going well. MOB reports to feel a connection to the baby, but does admit was unsure about the baby during . Normalized feelings and reactions in relation to the significant loss that MOB experienced. Educated to some risk factors for depression and anxiety, encouraged MOB to to talk with supports system if symptoms become distressing or surface, as well as reinforced that depression is part of grief, and that grief takes time. Educated rest and self care, and using supports systems when needed. MOB denies any needs for home going and accepted resources this advertising copy writer offered regarding grief, depression and anxiety, and resources for aftercare and support if needed. MOB held good eye contact, smiled at appropriate times, affect slightly constricted, open to social work visit. PLAN: MOB and baby to home when ready for discharge. Resources for home going provided. No other services requested or indicated. -TIFFANIE Vazquez, MAYNOR
== END 2020-03-19 12:45 | disposition home or self-care (01) | DRG 788 ==
PROVIDERS: Admitting Provider Obstetrics & Gynecology; PCP Orthopaedic Surgery; Referring Provider Obstetrics & Gynecology; Visit Provider Obstetrics & Gynecology
PROC: 10D00Z1 Extraction of Products of Conception, Low, Open Approach (ICD-10-PCS; CPT 59514; principal; 2020-03-17 07:15)
DX: O34.211 Maternal care for low transverse scar from previous cesarean delivery (principal); Z3A.39 39 weeks gestation of pregnancy; Z37.0 Single live birth
CPT/HCPCS: 85025; 85027; 86850; 86900; 86901; 99218; 99251; J7120; A4216; G0378; G0463